=== PATIENT | female | born 1985 | race Caucasian/White ===

== ENCOUNTER 2021-02-13 23:57 | Day surgery (SDCO) | payer SELFPAY ==
[~2021-02-13] VITALS: Ht 162.6 cm; Wt 134.0 kg
[2021-02-14 00:29] LABS: BASOPHIL 0.3 % (0-2); EOSINOPHIL 1.9 % (0-5); HGB 12.5 g/dl (12.5-16.0); LYMPHOCYTE 30.5 % (15-48); MCH 28.7 pg (25.0-31.0); MCHC 33.8 g/dL (32.0-36.0); MCV 85.1 fL (78.0-100.0); MONOCYTE 5.6 % (0-12); NEUTROPHIL 61.4 % (41-80); NRBC 0; PLT 288 K/uL (150-400); RBC 4.35 M/uL (4.20-5.40); WBC 7.3 K/uL (4.0-10.5)
[2021-02-14 00:37] LABS: INR 1.05 (0.9-1.2)
[2021-02-14 00:44] LABS: ALBUMIN 2.7 g/dL (3.4-5.0); BILIRUBIN - TOTAL 0.1 mg/dL (0.2-1.0); BUN/CREAT RATIO (CALC) 15.3 RATIO; CREATININE 0.85 mg/dL (0.51-0.95); GLOBULIN (CALCULATION) 2.8 g/dL; POTASSIUM 3.6 mmol/L (3.5-5.1); TOTAL PROTEIN 5.5 g/dL (6.4-8.2)
[2021-02-14 06:42] LABS: MAGNESIUM 1.8 mg/dL (1.8-2.4); PHOSPHORUS 2.9 mg/dL (2.6-4.7)
[2021-02-14 07:41] LABS: CKMB 0.5 ng/mL (0.0-3.6)
--- NOTE | 2021-02-14 14:49 | NUR ---
02/14/21 Ms. Eriberto Brown and her spouse share a home with their 4 children. The children have Passport insurance and the parents do not. They are not eligible for a spend down per the Entry Level Administrative Assistant. The Entry Level Administrative Assistant provided them with information re: [place] [employer]. - This social media assistant educated them to [facility].
[2021-02-14] MEDS ORDERED: ASPIRIN EC81 MG PO (14:52)
[2021-02-14] MEDS ORDERED: FIORICET1 EACH PO (15:00)
[2021-02-17 16:08] LABS: CK-BB 0 % (0); CK-MB 0 % (0-3); CK-MM 100 % (97-100); MACRO TYPE 1 0 % (Not Observed); MACRO TYPE 2 0 % (Not Observed)
== END 2021-02-14 15:40 | disposition home or self-care (01) ==
LOC: FER 23:57 → FTCU 02-14 05:11
PROVIDERS: Emergency Medicine Emergency Medical Services; Nurse Practitioner; ADMIT Internal Medicine
DX: M94.0 Chondrocostal junction syndrome [Tietze] (principal); R00.0 Tachycardia, unspecified; G43.909 Migraine, unspecified, not intractable, without status migrainosus; K76.0 Fatty (change of) liver, not elsewhere classified; R73.03 Prediabetes; Z88.2 Allergy status to sulfonamides; Z20.822 Contact with and (suspected) exposure to COVID-19
CPT/HCPCS: 36415; 36600; 71045; 71275; 80053; 82552; 82553; 82803; 83735; 83874; 83880; 84100; 84145; 84439; 84443; 84484; 85025; 85379; 85610; 85730; 86140; 93005; 94010; 94760; 94762; 96372; C9113; G0378; J1170; J1650; J1885; J2060; J2270; J2405; J2550; J3030; J7030; Q9967; U0002